=== PATIENT | male | born 1965 | race Caucasian/White ===

== ENCOUNTER 2019-05-29 06:31 | Day surgery (SDC) | payer OTHER ==
[~2019-05-29 06:31] MED LIST: Lactated Ringers 1,000 ML IV SCH; ceFAZolin 2 GM in Premix Bag 1 BAG IV SCH
[2019-05-29] MEDS ORDERED: ceFAZolin 1 GM Vial ONE (07:17)
[2019-05-29] MEDS ORDERED: Bupivacaine 0.5% 10 ML SDV ONE (07:17)
[2019-05-29] MEDS ORDERED: Lidocaine 2% 5 ML SDV ONE (07:40)
[2019-05-29] MEDS ORDERED: Propofol 200 MG/20 ML SDV ONE (07:40)
[2019-05-29] MEDS ORDERED: fentaNYL 100 MCG/2 ML SDV ONE ×2 (07:41→08:54)
[2019-05-29] MEDS ORDERED: Rocuronium 100 MG/10 ML Syringe ONE (07:41)
[2019-05-29] MEDS ORDERED: Midazolam 1 MG/ML 2 ML SDV ONE (07:41)
[2019-05-29] MEDS ORDERED: ceFAZolin/Dextrose,Iso-Osmotic 2 GM/50 ML Duplex Bag IV ONE (07:46)
--- NOTE | 2019-05-29 07:50 | PCM.PREANE ---
Preanesthetic Assessment - Anesthesia/Transfusion/Family Hx Anesthesia History: Prior Anesthesia Without Reaction Family History of Anesthesia Reaction: No Transfusion History: No Prior Transfusion(s) - Review of Systems General: No Symptoms Pulmonary: No Symptoms Cardiovascular: No Symptoms Gastrointestinal: No Symptoms Neurological: No Symptoms Other: Reports: None - Physical Assessment Vital Signs: Last Vital Signs Temp 97.7 F 05/29/19 06:40 Pulse 70 05/29/19 06:40 Resp 16 05/29/19 06:40 BP 137/79 05/29/19 06:40 Pulse Ox 96 05/29/19 06:40 Height: 5 ft 10 in Weight: 127.913 kg ASA Class: 2 Mental Status: Alert & Oriented x3 Airway Class: Mallampati = 2 Dentition: Reports: Normal Dentition ROM/Head Extension: Full Lungs: Clear to Auscultation, Normal Respiratory Effort - Allergies Allergies/Adverse Reactions: Allergies Allergy/AdvReac Type Severity Reaction Status Date / Time adhesive tape Allergy Rash Verified 05/26/19 16:32 - Blood Blood Available: No - Anesthesia Plan Pre-Op Medication Ordered: None - Acknowledgements Anesthesia Type Planned: General Anesthesia Pt an Appropriate Candidate for the Planned Anesthesia: Yes Alternatives and Risks of Anesthesia Discussed w Pt/Guardian: Yes Pt/Guardian Understands and Agrees with Anesthesia Plan: Yes Additional Comments: PMH: htn, gerd, M obesity, wheezing after dust exposure PLAN: get PreAnesthesia Questionnaire - Past Health History Medical/Surgical History: Denies Medical/Surgical History HEENT History: Reports: Allergic Rhinitis, Other (See Below) Other HEENT History: wears glasses Cardiovascular History: Reports: Hypertension Respiratory History: Reports: Other (See Below) Other Respiratory History: thinks he might have sleep apnea- never tested Genitourinary History: Reports: Renal Calculus Other Genitourinary History: hx of kidney stone x3 Musculoskeletal History: Reports: Fracture Other Musculoskeletal History: hx of fx clavicle and wrist Neurological History: Reports: Concussion, Vertigo Endocrine/Metabolic History: Reports: Obesity/BMI 30+ Dermatologic History: Reports: Other (See Below) Other Dermatologic History: dry itchy spots on arms, legs and back - Past Surgical History Head Surgeries/Procedures: Reports: None HEENT Surgical History: Reports: Tonsillectomy GI Surgical History: Reports: Bariatric Procedure, Other (See Below) Other GI Surgeries/Procedures: repair of herniated umbilical hernia Female Surgical History: Reports: Lithotripsy/ESWL Musculoskeletal Surgical History: Reports: Other (See Below) Other Musculoskeletal Surgeries/Procedures:: excision of ganglion cyst left wrist - SUBSTANCE USE Smoking Status *Q: Former Smoker Tobacco Use Within Last Twelve Months: No Recreational Drug Use History: No - HOME MEDS Home Medications: Home Meds Calcium Citrate 800 mg PO DAILY 01/05/14 [History] Iron 65 mg PO DAILY 01/05/14 [History] Albuterol Sulfate [Proair Hfa] 1 puff INH ASDIRECTED PRN 05/26/19 [History] Clobetasol [Clobetasol Propionate 0.05% Cream] 1 applic TOP ASDIRECTED PRN 05/26 [History] Cyanocobalamin/Folic AC/Vit B6 [Folbee] 1 tab PO DAILY 05/26/19 [History] Famotidine 20 mg PO DAILY 05/26/19 [History] Fluticasone Propionate [Flonase Allergy Relief] 1 spray NASBOTH ASDIRECTED PRN 05/26/19 [History] Magnesium 200 mg PO DAILY 05/26/19 [History] Tamsulosin [Flomax] 0.4 mg PO DAILY 05/26/19 [History] amLODIPine Besylate [Amlodipine Besylate] 10 mg PO QPM 05/26/19 [History] - CURRENT (IN HOUSE) MEDS Current Meds: Current Medications Cefazolin Sodium/Dextrose 2 gm (/ Premix) 50 mls @ 100 mls/hr IV ONETIME ROMEO Lactated Ringer's (Ringers, Lactated) 1,000 mls @ 125 mls/hr IV ASDIRECTED ROMEO Last Admin: 05/29/19 07:20 Dose: 125 mls/hr Discontinued Medications Bupivacaine HCl (Sensorcaine-Mpf 0.5%) Confirm Administered Dose 10 ml .ROUTE .STK-MED ONE Stop: 05/29/19 07:18 Cefazolin Sodium (Ancef) Confirm Administered Dose 1 gm .ROUTE .STK-MED ONE Stop: 05/29/19 07:18 Fentanyl (Sublimaze) Confirm Administered Dose 100 mcg .ROUTE .STK-MED ONE Stop: 05/29/19 07:42 Lidocaine (Xylocaine-Mpf 2%) Confirm Administered Dose 5 ml .ROUTE .STK-MED ONE Stop: 05/29/19 07:41 Midazolam HCl (Versed 1 Mg/Ml) Confirm Administered Dose 2 mg .ROUTE .STK-MED ONE Stop: 05/29/19 07:42 Propofol (Diprivan 20 Ml) Confirm Administered Dose 200 mg .ROUTE .STK-MED ONE Stop: 05/29/19 07:41 Rocuronium Naper (Zemuron) Confirm Administered Dose 100 mg .ROUTE .STK-MED ONE Stop: 05/29/19 07:42
[2019-05-29] MEDS ORDERED: ePHEDrine 50 MG/ML SDV ONE (08:29)
[2019-05-29] MEDS ORDERED: Ondansetron 4 MG/2 ML SDV ONE (08:30)
[2019-05-29] MEDS ORDERED: Neostigmine Methylsulfate 1 MG/ML 5 ML Syringe ONE (08:30)
[2019-05-29] MEDS ORDERED: Glycopyrrolate 0.2 MG/ML SDV ONE (08:30)
[2019-05-29] MEDS ORDERED: fentaNYL 100 MCG/2 ML SDV IVPUSH PRN (08:40)
[2019-05-29] MEDS ORDERED: HYDROmorphone 2 MG/ML Syringe IVPUSH PRN (08:41)
[2019-05-29] MEDS ORDERED: Ketorolac 30 MG/ML SDV ONE (09:14)
[2019-05-29] MEDS ORDERED: Ondansetron 4 MG/2 ML SDV IVPUSH PRN (09:50)
[2019-05-29] MEDS ORDERED: Acetaminophen/HYDROcodone 325-5 MG Tab PO PRN (09:50)
[2019-05-29] MEDS ORDERED: Morphine 10 MG/ML Syringe IVPUSH PRN (09:50)
--- NOTE | 2019-05-29 09:53 | PCM.OPNOTE ---
- General Post-Op/Procedure Note Date of Surgery/Procedure: 05/29/19 Operative Procedure(s): Repair incarcerated ventral hernia with 4.3 cm Ventralex mesh Pre Op Diagnosis: Incarcerated ventral hernia Post-Op Diagnosis: Same Anesthesia Technique: General ET Tube (ASA II) Primary Surgeon: Milton Ugarte Directory Operator: Hiwot Barahona Fluid Replacement, Intraop: 1,800 EBL in mLs: 20 Condition: Good Free Text/Narrative:: Intake & Output 05/28/19 05/29/19 05/29/19 19:59 03:59 11:59 Output Total 400 Balance -400 DICTATION [id number] CPT CODE 57908/97053
[2019-05-29] MEDS ORDERED: Lactated Ringers 1,000 ML IV SCH (10:00)
--- NOTE | 2019-05-29 10:09 | PCM.POSTAN ---
POST ANESTHESIA ASSESSMENT - MENTAL STATUS Mental Status: Alert, Oriented - VITAL SIGNS Vital Signs: Last Vital Signs Temp 98.1 F 05/29/19 09:33 Pulse 72 05/29/19 10:04 Resp 12 05/29/19 10:04 BP 120/67 05/29/19 10:04 Pulse Ox 96 05/29/19 10:04 - RESPIRATORY Respiratory Status: Respiratory Rate WNL, Airway Patent, O2 Saturation Stable - CARDIOVASCULAR CV Status: Pulse Rate WNL, Blood Pressure Stable - GASTROINTESTINAL GI Status: No Symptoms - POST OP HYDRATION Hydration Status: Adequate & Stable
--- NOTE | 2019-05-29 11:45 | PCM48HPAN ---
Post Anesthesia Note - EVALUATION WITHIN 48HRS OF ANESTHETIC Vital Signs in Normal Range: Yes Patient Participated in Evaluation: Yes Respiratory Function Stable: Yes Airway Patent: Yes Cardiovascular Function Stable: Yes Hydration Status Stable: Yes Pain Control Satisfactory: Yes Nausea and Vomiting Control Satisfactory: Yes Mental Status Recovered: Yes Vital Signs: Last Vital Signs Temp 98.1 F 05/29/19 09:33 Pulse 68 05/29/19 10:09 Resp 15 05/29/19 10:09 BP 119/65 05/29/19 10:09 Pulse Ox 96 05/29/19 10:09
--- NOTE | 2019-05-29 13:06 | PCM.POSTAN ---
POST ANESTHESIA ASSESSMENT - MENTAL STATUS Mental Status: Alert, Oriented - VITAL SIGNS Vital Signs: Last Vital Signs Temp 36.2 C 05/29/19 10:15 Pulse 90 05/29/19 11:30 Resp 15 05/29/19 11:30 BP 120/60 05/29/19 11:30 Pulse Ox 93 L 05/29/19 11:30 - RESPIRATORY Respiratory Status: Respiratory Rate WNL, Airway Patent, O2 Saturation Stable - CARDIOVASCULAR CV Status: Pulse Rate WNL, Blood Pressure Stable - GASTROINTESTINAL GI Status: No Symptoms - POST OP HYDRATION Hydration Status: Adequate & Stable
--- NOTE | 2019-05-29 14:16 | OR ---
SURGEON: Milton Ugarte M.D. DATE OF PROCEDURE: 05/29/2019 OPERATION PERFORMED: Repair of incarcerated ventral hernia with 4.3 cm Ventralex mesh. PRIMARY SURGEON: Milton Ugarte MD. FORESTRY FACULTY MEMBER: customer assistance representative: BAKARI Titus. ANESTHESIA: General endotracheal ASA CLASSIFICATION: II. PREOPERATIVE DIAGNOSIS: Incarcerated ventral hernia. POSTOPERATIVE DIAGNOSIS: Incarcerated ventral hernia. ESTIMATED BLOOD LOSS: 20 mL. INTRAOPERATIVE FLUID REPLACEMENT: 1800 mL of crystalloid. DESCRIPTION OF PROCEDURE: The patient was taken to the operating room and placed on the operating table in the supine position. Time-out was called for appropriate identification of the patient and procedure. Sequential compression boots were placed. Following satisfactory attainment of general endotracheal anesthesia, the abdomen was prepped with DuraPrep solution and sterile drapes were applied. The skin incision had been marked prior to the patient entering the operating room. The skin above the umbilicus was now infiltrated with 10 mL of 0.5% Marcaine solution. The skin incision was made and deepened through the subcutaneous tissue down to the hernia sac. Actually, the patient had three separate hernia sacs that communicated through one fascial defect. This was dissected free with a combination of sharp and blunt dissection. The hernia sac was entered and the hernia sac was removed. There was a very small fascial bridge that was incised to create one defect. Once that was accomplished and the hernia sac removed, the omentum was able to be easily reduced. There was one point of bleeding on the omentum that required suture ligation with 3-0 Vicryl. No other bleeding was noted. Once the omentum was reduced, the fascial edges were cleaned up. A 4.3 cm Ventralex mesh was brought to the operating table. This was soaked in 1% Ancef solution. Using an underlay technique, the mesh was placed under the fascial defect and secured with multiple interrupted horizontal 0 Ethibond sutures. All sutures were placed under direct vision and held with hemostats. Once the final suture had been placed, the Ethibond sutures were tied down. The patient was now given a Valsalva maneuver to 40 cm of water and the repair was solid. The wound was irrigated with 1% Ancef solution. The fascia was then reapproximated over the mesh, again with interrupted 0 Ethibond. Subcutaneous tissue was closed with running 3-0 Vicryl and skin edges were reapproximated with subcuticular 4-0 Monocryl. The wound was dressed with a sterile Tegaderm pad. Sponge, needle, and instrument counts were all correct. Following emergence from anesthesia, the patient was taken to recovery room in stable condition. IFEANYI FRANCES /[id number]
== END 2019-05-29 12:00 | disposition home or self-care (01) ==
LOC: MW.SDS 06:31
PROVIDERS: ATTEND Surgery
DX: K43.6 Other and unspecified ventral hernia with obstruction, without gangrene (principal); I10 Essential (primary) hypertension; K21.9 Gastro-esophageal reflux disease without esophagitis; E66.01 Morbid (severe) obesity due to excess calories; Z91.048 Other nonmedicinal substance allergy status; Z87.891 Personal history of nicotine dependence; Z79.899 Other long term (current) drug therapy; Z68.41 Body mass index [BMI] 40.0-44.9, adult
CPT/HCPCS: 49561; C1781; J0690; J1885; J2001; J2250; J2405; J2704; J3010; J3490; J7120; 88302

== ENCOUNTER 2020-03-24 07:23 | Emergency (ER) | payer OTHER ==
[2020-03-24] MEDS ORDERED: HYDROmorphone 1 MG/ML Syringe IVPUSH ONE ×3 (07:26→11:18)
[2020-03-24] MEDS ORDERED: Sodium Chloride 0.9% 10 ML Syringe FLUSH PRN (07:26)
[2020-03-24] MEDS ORDERED: Sodium Chloride 0.9% 1,000 ML IV ONE (07:26)
[2020-03-24] MEDS ORDERED: Sodium Chloride 0.9% 2.5 ML Syringe FLUSH PRN (07:26)
--- NOTE | 2020-03-24 07:36 | EDM.PDOC ---
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 Apparently the patient was stepping up into a gas station and missed a step, tripped and fell onto his left hip in a twist. Also landed on his elbow but not having pain there. He did not strike his head. He has had no dizziness or syncope prior to the incident it was a mechanical trip fall. EMS gave him [address] m[address] of f[address]anyl on the way and his pain improved from severe to 2 out of 10. Vital signs are otherwise stable, the patient was mildly hypertensive though has a history of hypertension. Review of systems: As per history of present illness and below otherwise all systems reviewed and negative. Past medical history: As per history of present illness and as reviewed below otherwise noncontributory. Hypertension Surgical history: As per history of present illness and as reviewed below otherwise nonco ntributory. Gastric bypass Social history: No reported history of drug or alcohol abuse. No tobacco Family history: As per history of present illness and as reviewed below otherwise noncontribut ory. Physical exam: GEN: no acute distress, other than in pain with any movement of the left leg well appearing HEENT: Atraumatic, normocephalic, mucous membranes moist, no signs of trauma. No skull or facial bone tenderness. Neck: supple, nontender, trachea midline. C-spine with no midline tenderness or stepoffs Lungs: No respiratory distress. No chest wall tenderness or bruising Heart: RRR Abdomen: Soft, nondistended, nontender. Atraumatic Back: nontender Extremities: Left hip held in flexion, internal rotation and shortened. Pain with any range of motion of the hip. Left knee, ankle and foot with intact and painless range of motion. Pelvis is stable. Right lower extremity nontender and atraumatic. Both upper extremities nontender. All 4 extremities neurovascularly intact. Neuro: Awake, alert, oriented. Neuro Exam nonfocal. Skin: warm, dry, no lesions Diagnostics: X-ray Therapeutics: Pain medications (dilaudid 1mg x 2) MDM: Impression: [] Plan: [] Definitive disposition and diagnosis as appropriate pending reevaluation and review of above. Left hip Pain Score (Numeric/FACES): 4 - Related Data Allergies Allergy/AdvReac Type Severity Reaction Status Date / Time adhesive tape Allergy Rash Verified 03/24/20 07:25 Home Meds: Home Meds Calcium Citrate 800 mg PO DAILY 01/05/14 [History] Iron 65 mg PO DAILY 01/05/14 [History] Albuterol Sulfate [Proair Hfa] 1 puff INH ASDIRECTED PRN 05/26/19 [History] Clobetasol [Clobetasol Propionate 0.05% Cream] 1 applic TOP ASDIRECTED PRN 05/26/19 [History] Cyanocobalamin/Folic AC/Vit B6 [Folbee] 1 tab PO DAILY 05/26/19 [History] Famotidine 20 mg PO DAILY 05/26/19 [History] Fluticasone Propionate [Flonase Allergy Relief] 1 spray NASBOTH ASDIRECTED PRN 05/26/19 [History] Magnesium 200 mg PO DAILY 05/26/19 [History] Tamsulosin [Flomax] 0.4 mg PO DAILY 05/26/19 [History] amLODIPine Besylate [Amlodipine Besylate] 10 mg PO QPM 05/26/19 [History] Past Medical History - Past Health History Medical/Surgical History: Denies Medical/Surgical History HEENT History: Reports: Allergic Rhinitis, Other (See Below) Other HEENT History: wears glasses Cardiovascular History: Reports: Hypertension Respiratory History: Reports: Other (See Below) Other Respiratory History: thinks he might have sleep apnea- never tested Genitourinary History: Reports: Renal Calculus Other Genitourinary History: hx of kidney stone x3 Musculoskeletal History: Reports: Fracture Other Musculoskeletal History: hx of fx clavicle and wrist Neurological History: Reports: Concussion, Vertigo Endocrine/Metabolic History: Reports: Obesity/BMI 30+ Dermatologic History: Reports: Other (See Below) Other Dermatologic History: dry itchy spots on arms, legs and back - Past Surgical History Head Surgeries/Procedures: Reports: None HEENT Surgical History: Reports: Tonsillectomy GI Surgical History: Reports: Bariatric Procedure, Other (See Below) Other GI Surgeries/Procedures: repair of herniated umbilical hernia Female Surgical History: Reports: Lithotripsy/ESWL Musculoskeletal Surgical History: Reports: Other (See Below) Other Musculoskeletal Surgeries/Procedures:: excision of ganglion cyst left wrist Review of Systems - Review of Systems Review Of Systems: See Below (See HPI) ED EXAM, GENERAL - Physical Exam Exam: See Below (See HPI) Course - Vital Signs Text/Narrative:: Differential diagnosis: Left hip fracture, hip dislocation, hip strain X-ray of the left hip shows femoral head fracture with displacement. Pain much improved after Dilaudid was given. Case discussed with orthopedic surgery on-call here, who recommends transfer as the patient will need higher level orthopedic surgical intervention given the type of fracture. This was discussed with on-call orthopedic surgery at [facility] who does report that they can care for this type of fracture and perform the necessary surgical repair and therefore accept the patient there. The patient does agree to transfer. Last Recorded V/S: Last Vital Signs Temp 97.5 F 03/24/20 07:26 Pulse 91 03/24/20 10:26 Resp 17 03/24/20 10:26 BP 155/83 H 03/24/20 10:26 Pulse Ox 98 03/24/20 10:26 - Orders/Labs/Meds Orders: Active Orders 24 hr Category Date Time Status Vieira Catheter Insertion [Insert Urinary Catheter] [OM. Care 03/24/20 10:00 Ordered PC] Q24H Urinary Catheter Assessment [RC] ASDIRECTED Care 03/24/20 09:50 Active Sodium Chloride 0.9% [Saline Flush] Med 03/24/20 07:26 Active 10 ml FLUSH ASDIRECTED PRN Sodium Chloride 0.9% [Saline Flush] Med 03/24/20 07:26 Active 2.5 ml FLUSH ASDIRECTED PRN Saline Lock Insert [OM.PC] Stat Oth 03/24/20 07:26 Ordered Medication Orders Sodium Chloride (Saline Flush) 10 ml FLUSH ASDIRECTED PRN PRN Reason: Keep Vein Open Sodium Chloride (Saline Flush) 2.5 ml FLUSH ASDIRECTED PRN PRN Reason: Keep Vein Open Labs: Laboratory Tests 03/24/20 03/24/20 03/24/20 Range/Units 08:00 08:00 08:24 WBC 5.87 (4.0-11.0) K/uL RBC 4.81 (4.50-5.90) M/uL Hgb 13.9 (13.0-17.0) g/dL Hct 42.4 (38.0-50.0) % MCV 88.1 (80.0-98.0) fL MCH 28.9 (27.0-32.0) pg MCHC 32.8 (31.0-37.0) g/dL RDW Std Deviation 46.5 (28.0-62.0) fl RDW Coeff of Sridhar 14 (11.0-15.0) % Plt Count 276 (150-400) K/uL MPV 10.00 (7.40-12.00) fL Neut % (Auto) 62.9 (48.0-80.0) % Lymph % (Auto) 19.9 (16.0-40.0) % [place] % (Auto) 11.2 (0.0-15.0) % Eos % (Auto) 5.1 (0.0-7.0) % Baso % (Auto) 0.9 (0.0-1.5) % Neut # (Auto) 3.7 (1.4-5.7) K/uL Lymph # (Auto) 1.2 (0.6-2.4) K/uL [place] # (Auto) 0.7 (0.0-0.8) K/uL Eos # (Auto) 0.3 (0.0-0.7) K/uL Baso # (Auto) 0.1 (0.0-0.1) K/uL Nucleated RBC % 0.0 /100WBC Nucleated RBCs # 0 K/uL Sodium 140 (136-148) mmol/L Potassium 3.9 (3.5-5.1) mmol/L Chloride 104 (98-107) mmol/L Carbon Dioxide 23.8 (21.0-32.0) mmol/L BUN 13 (7.0-18.0) mg/dL Creatinine 1.0 (0.8-1.3) mg/dL Est Cr Clr Drug Dosing 94.84 mL/min Estimated GFR (MDRD) > 60.0 ml/min Glucose 131 H (74-106) mg/dL Calcium 9.0 (8.5-10.1) mg/dL SARS Virus RNA (PCR) NEGATIVE (NEGATIVE) Meds: Medications Generic Name Dose Route Start Last Admin Trade Name Chelsea PRN Reason Stop Dose Admin Sodium Chloride 10 ml 03/24/20 07:26 Saline Flush FLUSH ASDIRECTED PRN Keep Vein Open Sodium Chloride 2.5 ml 03/24/20 07:26 Saline Flush FLUSH ASDIRECTED PRN Keep Vein Open Discontinued Medications Generic Name Dose Route Start Last Admin Trade Name Chelsea PRN Reason Stop Dose Admin Hydromorphone HCl 1 mg 03/24/20 07:26 03/24/20 07:40 Dilaudid IVPUSH 03/24/20 07:27 1 mg ONETIME ONE Administration Hydromorphone HCl 1 mg 03/24/20 08:15 03/24/20 08:29 Dilaudid IVPUSH 03/24/20 08:16 1 mg ONETIME ONE Administration Sodium Chloride 1,000 mls @ 999 mls/hr 03/24/20 07:26 03/24/20 07:38 Normal Saline IV 03/24/20 08:26 999 mls/hr .Bolus ONE Administration - Re-Assessments/Exams Free Text/Narrative Re-Assessment/Exam: 03/24/20 09:26 Dr. Low, orthopedics called back and reviewed the images, based on the pattern of fracture, through the femoral head with displacement, he recommends transfer to higher-level orthopedic trauma center. We will attempt to call [facility]. 03/24/20 09:43 Discussed with orthopedic surgeon, Dr. Montelongo, at [facility] for transfer - agrees that it needs surgical repair and that this of fracture can be repaired at this facility and recommends to send patient to [facility] ED, he accepts transfer. Also discussed with ER physician, Dr. Le, who also accepts the case. 03/24/20 10:05 Patient is feeling much better. He is in no acute distress and resting comfortably. His pain is much improved. He has a Vieira catheter in place. That is draining well. He agrees with plan for transfer to [facility]. Departure - Departure Time of Disposition: 09:45 Disposition: DC/Tfer to [facility] 02 Clinical Impression: Fracture of femoral head Qualifiers: Encounter type: initial encounter Fracture type: closed Laterality: left Qualified Code(s): S72.052A - Unspecified fracture of head of left femur, initial encounter for closed fracture - Discharge Information Referrals: Nitin Blair MD [Primary Care Provider] - Forms: ED Department Discharge Sepsis Event Note (ED) - Evaluation Sepsis Screening Result: No Definite Risk - Focused Exam Vital Signs: Vital Signs Temp Pulse Resp BP Pulse Ox 03/24/20 10:26 91 17 155/83 H 98 03/24/20 09:56 93 16 158/95 H 98 03/24/20 08:17 101 H 18 123/79 96 03/24/20 07:47 98 18 121/83 94 L 03/24/20 07:26 97.5 F 78 17 135/76 98 - My Orders Last 24 Hours: My Active Orders 03/24/20 07:26 Sodium Chloride 0.9% [Saline Flush] 10 ml FLUSH ASDIRECTED PRN Sodium Chloride 0.9% [Saline Flush] 2.5 ml FLUSH ASDIRECTED PRN Saline Lock Insert [OM.PC] Stat 03/24/20 09:50 Urinary Catheter Assessment [RC] ASDIRECTED 03/24/20 10:00 Vieira Catheter Insertion [Insert Urinary Catheter] [OM.PC] Q24H - Assessment/Plan Last 24 Hours: My Active Orders 03/24/20 07:26 Sodium Chloride 0.9% [Saline Flush] 10 ml FLUSH ASDIRECTED PRN Sodium Chloride 0.9% [Saline Flush] 2.5 ml FLUSH ASDIRECTED PRN Saline Lock Insert [OM.PC] Stat 03/24/20 09:50 Urinary Catheter Assessment [RC] ASDIRECTED 03/24/20 10:00 Vieira Catheter Insertion [Insert Urinary Catheter] [OM.PC] Q24H
--- NOTE | 2020-03-24 08:24 | CR ---
Left hip and pelvis: AP view of the pelvis was obtained as well as crosstable lateral view and AP view. Study is suboptimal in technique most likely relating to patient body habitus. Displace subcapital fracture is present. No other fracture is definitely appreciated. Joint space narrowing is noted within the right hip. Impression: 1. Less than optimal study as noted above. 2. Findings felt compatible with displace subcapital fracture within the left hip. Note: If further evaluation for the amount of displacement is needed, CT would then be indicated. Diagnostic code #5 Study was dictated in MDT
[2020-03-24 08:40] LABS: BLOOD UREA NITROGEN,BUN 13 mg/dL (7.0-18.0); CARBON DIOXIDE,CO2 23.8 mmol/L (21.0-32.0); CHLORIDE,CL 104 mmol/L (98-107); GLUCOSE RANDOM 131 mg/dL (74-106); POTASSIUM,K 3.9 mmol/L (3.5-5.1); SODIUM,NA 140 mmol/L (136-148)
[2020-03-24] MEDS ORDERED: HYDROmorphone 1 MG/ML Syringe ONE (11:19)
== END 2020-03-24 12:00 ==
LOC: MW.ED 07:23
DX: S72.012A Unspecified intracapsular fracture of left femur, initial encounter for closed fracture (principal); I10 Essential (primary) hypertension; E66.9 Obesity, unspecified; Z91.048 Other nonmedicinal substance allergy status; Z79.899 Other long term (current) drug therapy; W01.0XXA Fall on same level from slipping, tripping and stumbling without subsequent striking against object, initial encounter; Y92.524 Gas station as the place of occurrence of the external cause
CPT/HCPCS: 36415; 51702; 73502; 80048; 85025; 87635; 96361; 96374; 96376; 99285; J1170; J7030; 99284; U0002

== ENCOUNTER 2021-11-10 13:56 | Emergency (ER) | payer OTHER | END 2021-11-10 15:35 | disposition home or self-care (01) | LOC: MW.ED 13:56 | DX: S29.9XXA Unspecified injury of thorax, initial encounter (principal); E66.9 Obesity, unspecified; I10 Essential (primary) hypertension; Z68.32 Body mass index [BMI] 32.0-32.9, adult; Z79.899 Other long term (current) drug therapy; X58.XXXA Exposure to other specified factors, initial encounter | CPT/HCPCS: 71046; 71046-26; 93005; 99283-25 ==

== ENCOUNTER 2022-12-08 09:01 | Emergency (ER) | payer OTHER | END 2022-12-08 11:13 | disposition home or self-care (01) | LOC: MW.ED 09:01 | DX: J18.9 Pneumonia, unspecified organism (principal); I10 Essential (primary) hypertension; E78.00 Pure hypercholesterolemia, unspecified; K21.9 Gastro-esophageal reflux disease without esophagitis; J45.909 Unspecified asthma, uncomplicated; E66.9 Obesity, unspecified; Z68.41 Body mass index [BMI] 40.0-44.9, adult; Z86.16 Personal history of COVID-19; Z91.048 Other nonmedicinal substance allergy status; Z79.899 Other long term (current) drug therapy | CPT/HCPCS: 71046; 71046-26; 99283; 99284 ==